=== PATIENT | male | born 1985 | race Caucasian/White ===

== ENCOUNTER 2024-01-02 21:50 | Emergency (ER) | payer OTHER, SELFPAY ==
[2024-01-02 22:04] VITALS: BP 117/63; BP 118/54; PULSE 60; PULSE 63; RESP 16; TEMP 36.5; O2SAT 98; O2SAT 99; BMI 25.0
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
[2024-01-02] MEDS: Morphine Sulfate Immed Release 15 MG TABLET PO (23:19)
[2024-01-03 00:05] VITALS: BP 117/63; PULSE 63; RESP 16; TEMP 36.5; O2SAT 98
== END 2024-01-03 00:05 | disposition home or self-care (01) ==
PROVIDERS: Emergency Provider Emergency Medicine
DX: M79.641 Pain in right hand (principal)
CPT/HCPCS: 99283

== ENCOUNTER 2024-01-27 17:03 | Emergency (ER) | payer OTHER, SELFPAY ==
[2024-01-27 17:27] VITALS: BP 120/80; PULSE 71; O2SAT 98
--- NOTE | 2024-01-27 17:56 | ED.PSYCH ---
HPI - Psych General Stated Complaint: VERBALLY COMBATIVE ON ANESTHESIA Source: patient and EMS Mode of arrival: EMS Limitations: no limitations History of Present Illness ED Provider: Juan J Rea PA-C HPI Narrative: 38-year-old male presents the ER from [facility] postop area after he had a finger procedure done today with [facility] for evaluation of aggressive behavior after he woke up from anesthesia. Arrives not on a section 12 but for a crisis evaluation. EMS states he was supposed to go to [facility] for evaluation however he wanted to come to [place]. Patient evaluated on the stretcher in the hallway. States he just needs to be monitored for 24 hours after the anesthesia and he has under the influence of 3 different medications. He does not have a recollection of the events that happened today. He denies any suicidal thoughts. He states he does not want to be here anymore and wants to go to [facility]. He is awake, alert, oriented x3. He has demanding that the EMS personnel bring him to [facility] for evaluation. MD complaint: other Duration: resolved prior to arrival Associated psychiatric symptoms: none Associated symptoms: denies other symptoms Treatments prior to arrival: none Related Data Allergies Allergy/AdvReac Type Severity Reaction Status Date / Time No Known Allergies Allergy Verified 01/02/24 22:07 [No Known Allergies*] [facility] Social History Social History Advance Directives: No Advance Directives Information Provided: No Physical Exam Vital Signs: Appearance: Alert. Oriented X3. No acute distress. HEENT: normal inspection Respiratory: No respiratory distress. Speaking in complete sentences Abdomen: normal inspection Skin: mild pallor to the skin Extremities: No lower extremity edema. No joint swelling. Right hand with coband dressing on fingers Neuro/psych: Oriented X 3. Grossly normal, nonfocal. answers questions appropriately. No suicidal or homicidal thoughts. Normal thought process. Medical Decision Making Medical Decision Making MDM Narrative: 38-year-old male presents the ER for evaluation after he was ?verbally combative on anesthesia? per EMS. You have also been taking [facility] but ended up coming to [place]. He states he no longer wants to be here and wishes to go to [facility]. Explained to the patient that this is a [place]AL[place] violation and he should stay here for medical evaluation after his surgery. He denies any suicidal thoughts, homicidal thoughts. He is alert and oriented x3. He does not want to stay here. He got up off the stretcher and walk out of the emergency department. Differential Diagnosis Differential Diagnoses: The differential diagnosis associated with the presentation includes Crisis, adverse reaction to anesthesia, personality disorder Independent Historian Clinical information obtained from an independent historian. History obtained from or confirmed by: EMS External Record Review External record reviewed: Outpatient record Critical Care Time Critical Care Time Critical Care Time: No Discharge Plan Discharge Clinical Impression: Agitation Patient Disposition: Elopement Print Language: Chinese
--- NOTE | 2024-01-27 18:08 | MHC.CARE ---
Per Tierney (Co-response clinician) Pt is not at [facility] for psychiatric evaluation but for medical clearance. Pt denies SI/HI/AVH and no psychosis is observed. Pt does request [facility] level of care to which Tierney reports that she will type an evaluation and put in a referral for.
== END 2024-01-27 18:20 | disposition left against medical advice (07) ==
PROVIDERS: Emergency Provider Emergency Medicine Emergency Medical Services
DX: R45.1 Restlessness and agitation (principal); R45.6 Violent behavior

== ENCOUNTER 2024-01-27 18:18 | Emergency (ER) | payer OTHER, SELFPAY ==
--- NOTE | 2024-01-27 18:24 | MHC.CARE ---
Per Tierney (Co-response clinician) Pt is not at [facility] for psychiatric evaluation but for medical clearance. Pt denies SI/HI/AVH and no psychosis is observed. Pt does request [facility] level of care to which Tierney reports that she will type an evaluation and put in a referral for.
[2024-01-27 18:35] VITALS: BP 121/75; PULSE 76; RESP 18; TEMP 36.4; O2SAT 96; BMI 23.0
[2024-01-27 19:11] VITALS: BP 112/62; PULSE 68; RESP 14; TEMP 36.9; O2SAT 96
--- NOTE | 2024-01-27 19:17 | PC.NURSE ---
at bedside for primary eval.
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
[2024-01-27] MEDS: Acetaminophen 325 MG TABLET 650 MG PO (20:16)
[2024-01-27] MEDS: oxyCODONE HCl Immed Release 5 MG TABLET 10 MG PO (20:16)
[2024-01-28] MEDS: oxyCODONE HCl Immed Release 5 MG TABLET PO ×3 (00:41→09:05)
[2024-01-28] MEDS: Acetaminophen 325 MG TABLET 975 MG PO ×2 (00:48→04:41)
[2024-01-28] MEDS: traZODone HCL 50 MG TABLET PO (00:48)
[2024-01-28 01:58] VITALS: BP 110/56; PULSE 64; RESP 17
--- NOTE | 2024-01-28 07:55 | PC.NURSE ---
Assumed care of patient at 0645, patient appears to be in no apparent distress at this time, ambulating around BH pod with steady gait, alert and oriented x4. Pt verbalizes mild pain in hand, requested this RN let him know when he could have his PRN Oxycodone. Continue plan of care for [facility] respite today
[2024-01-28 08:06] VITALS: BP 118/45; PULSE 60; RESP 16; TEMP 36.8; O2SAT 96
[2024-01-28] MEDS: hydrOXYzine HCL 25 MG TABLET PO (08:22)
--- NOTE | 2024-01-28 09:12 | PC.NURSE ---
Patient aware of plan of care to leave at 1000 this am
[2024-01-28 09:30] VITALS: BP 112/52; PULSE 62; RESP 16; TEMP 36.9; O2SAT 97
== END 2024-01-28 10:12 ==
PROVIDERS: Emergency Provider Emergency Medicine Emergency Medical Services
DX: R45.851 Suicidal ideations (principal); F41.9 Anxiety disorder, unspecified; F43.10 Post-traumatic stress disorder, unspecified; F12.10 Cannabis abuse, uncomplicated; Z87.820 Personal history of traumatic brain injury; Z79.899 Other long term (current) drug therapy
CPT/HCPCS: 99285; S9485

== ENCOUNTER 2024-05-19 07:01 | Emergency (ER) | payer OTHER, SELFPAY ==
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
--- NOTE | ~2024-05-19 | CT_ITS ---
EXAMINATION: CT CERVICAL SPINE without contrast CLINICAL INFORMATION: neck pain COMPARISON: Prior CT scan from 2019 TECHNIQUE: Computed axial sagittal and coronal images acquired using department's standard protocol. This CT examination was performed using dose optimization techniques as appropriate, variously including the following: *Automated exposure control *Adjustment of mA and/or kV according to patient size (this includes techniques or standardized protocols for targeted exams where dose is matched to indication/reason for exam; i.e. extremities or head) *Use of iterative reconstruction technique CONTRAST: None DLP: 1273 mGy-cm FINDINGS: SKULL BASE: Partially included are probably retention cysts in the left maxillary sinus. Mucosal thickening right maxillary sinus. Otherwise unremarkable. CERVICAL VERTEBRAE: Seven cervical vertebrae identified maintaining proper height, stable mild grade 1 anterior spondylolisthesis of C4 on C5. Sclerotic density in the vertebral body of the C4 has not changed from prior exam. ATLANTOAXIAL AND ATLANTOOCCIPITAL ARTICULATION: Included occipital condyle are properly articulating with C1, measuring of C1 is intact. Proper articulation of the odontoid process with C1. POSTERIOR SPINES and lateral transverse processes: All are intact. DISCS: Narrowing of intervertebral disc spaces and developed small osteophyte from the edges of endplates encroaching on the neural foramen bilaterally at multiple levels. PREVERTEBRAL SOFT TISSUE: Within normal limits, no evidence of prevertebral soft tissue swelling. Visualized portion of the trachea larynx are normal. LUNG APICES: Included lung apices are clear bilaterally. Paravertebral soft tissue including LYMPH NODE AND SALIVARY GLANDS THYROID: Paravertebral soft tissue including cervical lymph nodes are within normal limits. Included paranasal and salivary unremarkable. CT/CT cervical spine wo IV con IMPRESSION: 1. No CT evidence of acute fracture. 2. Stable grade 1 anterior spondylolisthesis of C4 on C5. 3. Stable nonspecific sclerotic changes in the C4 vertebra body. 4. Narrowing of intervertebral disc spaces and developed small osteophyte from the edges of endplates encroaching on the neural foramen bilaterally at multiple levels. Electronically signed by: Marycarmen Spring MD 05/19/2024 10:07 AM EDT
--- NOTE | ~2024-05-19 | CT_ITS ---
CT HEAD WITHOUT IV CONTRAST CLINICAL INFORMATION: fall neck pain COMPARISON: No prior CT scan available for comparison. TECHNIQUE: Department standard protocol. This CT examination was performed using dose optimization techniques as appropriate, variously including the following: *Automated exposure control *Adjustment of mA and/or kV according to patient size (this includes techniques or standardized protocols for targeted exams where dose is matched to indication/reason for exam; i.e. extremities or head) *Use of iterative reconstruction technique DLP: 1273 mGy-cm FINDINGS: Exam limited by motion artifact, CEREBRAL HEMISPHERES: There is no evidence of intra-axial or extra-axial mass, hemorrhage or acute infarct. BRAIN PARENCHYMA: Normal patel-white matter differentiation. SUBDURAL SPACE: No bleed. BASAL GANGLIA AND PINEAL GLAND: Unremarkable VENTRICLES: Symmetric and normal in size. CEREBELLUM AND BRAINSTEM: No space-occupying mass, hemorrhage or acute infarct. CEREBELLOPONTINE ANGLES: No lesion found. ORBITS: No intraorbital mass. VESSELS: Unremarkable SKULL BASE: Unremarkable INCLUDED SINUSES AT SKULL BASE: Clear SKULL AND SKIN: No fracture or bone lesion found. CT/CT head/brain wo IV con IMPRESSION: No CT evidence of intracranial space-occupying mass, bleed or infarct. Electronically signed by: Marycarmen Spring MD 05/19/2024 10:00 AM EDT
[2024-05-19 07:09] VITALS: BP 108/76; BP 126/80; PULSE 57; PULSE 58; RESP 18; TEMP 36.4; O2SAT 97; O2SAT 99; BMI 23.6
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
--- NOTE | 2024-05-19 07:28 | ECG_ITS ---
Test Reason : PASSED OUT Blood Pressure : / mmHG Vent. Rate : 057 BPM Atrial Rate : 057 BPM P-R Int : 152 ms QRS Dur : 096 ms QT Int : 418 ms P-R-T Axes : 064 053 053 degrees QTc Int : [address] elevation, consider early repolarization Borderline ECG No previous ECGs available Referred By: Carrillo Hedrick Electronically Signed By:NAVID BELTRE
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
--- NOTE | 2024-05-19 08:41 | MHC.EDTECH ---
pt refused blood labs
[2024-05-19 09:14] VITALS: BP 125/75; PULSE 57; RESP 17; TEMP 36.6; O2SAT 100
[2024-05-19 09:19] LABS: MANUAL DIFF FLAG NO
[2024-05-19 09:21] LABS: Basophils Percent Auto 0.4 % (0-2); Eosinophils Absolute Auto 0.1 X10*3/uL (0.0-0.4); Eosinophils Percent Auto 1.1 % (0-4); Hematocrit 46.1 % (42.0-52.0); Hemoglobin 15.5 g/dl (14.0-18.0); Imm Gran Abs Auto 0.04 X10*3/uL (0.00-0.03); Imm Gran Pct Auto 0.4 % (0.0-0.4); Lymphocytes Absolute Auto 2.6 X10*3/uL (1.2-4.9); Lymphocytes Percent Auto 25.7 % (20-40); Mean Corpuscular HGB Conc 33.6 g/dl (31.0-36.0); Mean Corpuscular Hemoglobin 28.3 pg (27.0-33.0); Mean Corpuscular Volume 84.1 fL (80.0-98.0); Mean Platelet Volume 10.5 fL (9.4-12.4); Monocytes Absolute Auto 0.6 X10*3/uL (0.1-1.2); Monocytes Percent Auto 5.6 % (2-11); Neutrophils Absolute Auto 6.7 x10*3/uL (2.0-8.3); Neutrophils Percent Auto 66.8 % (45-73); Platelet Count 353 X10*3/uL (160-400); Red Blood Count 5.48 X10*6/uL (4.60-5.80); Red Cell Distribution Width 13.2 % (11.0-16.0); White Blood Count 10.1 X10*3/uL (4.8-10.8)
[2024-05-19 09:38] LABS: Alanine Aminotransferase 13 U/L (0-40); Albumin Level 4.7 g/dL (3.5-5.0); Alkaline Phosphatase 62 U/L (39-117); Anion Gap 12 (12-20); Aspartate Amino Transferase 15 U/L (5-37); Bilirubin Total 0.6 mg/dL (0.0-1.0); Blood Urea Nitrogen 20 mg/dL (9-16); C Reactive Protein < 0.10 mg/dL (< or = 0.50); Calcium 9.6 mg/dL (8.4-10.2); Carbon Dioxide 29 mmol/L (22-29); Chloride 106 mmol/L (96-108); Creatinine Clr Calc Pharmacy 93.5; Estimated Glomerular Filt Rate > 60; Glucose Random 97 mg/dL (60-115); Magnesium 2.3 mg/dL (1.6-2.6); Potassium 4.2 mmol/L (3.3-5.1); Sodium 143 mmol/L (135-145); Total Protein 7.5 g/dL (6.5-8.0)
[2024-05-19 09:53] LABS: Troponin-I High Sensitivity < 2.7 ng/L (<3.5-35.0)
[2024-05-19] MEDS: Acetaminophen 325 MG TABLET 650 MG PO (10:20)
[2024-05-19 10:31] LABS: Erythrocyte Sedimentation Rate 1 MM/HR (0-15)
[2024-05-19 11:31] VITALS: BP 118/57; PULSE 67; RESP 12; O2SAT 99
[2024-05-19 11:49] VITALS: BP 118/57; PULSE 67; RESP 12; TEMP 36.6; O2SAT 99
== END 2024-05-19 11:53 | disposition home or self-care (01) ==
PROVIDERS: Physician Assistant; Emergency Provider Emergency Medicine
DX: S06.0X0A Concussion without loss of consciousness, initial encounter (principal); W20.8XXA Other cause of strike by thrown, projected or falling object, initial encounter; Y35.893A Legal intervention involving other specified means, suspect injured, initial encounter; Y93.89 Activity, other specified; Y92.003 Bedroom of unspecified non-institutional (private) residence as the place of occurrence of the external cause; Y99.9 Unspecified external cause status; R55 Syncope and collapse; R51.9 Headache, unspecified; M54.2 Cervicalgia; M54.9 Dorsalgia, unspecified; M51.36 Other intervertebral disc degeneration, lumbar region
CPT/HCPCS: 36415; 70450; 72100; 72125; 80053; 83735; 84484; 85025; 85652; 86140; 93005; 99284